=== PATIENT | female | born 1990 | race Caucasian/White ===

== ENCOUNTER 2018-01-11 09:30 | Emergency (ER) | payer SELFPAY ==
[2018-01-11] MEDS ORDERED: ONDANSETRON 4 MG/2 ML VIAL ONE (10:04)
[2018-01-11] MEDS ORDERED: NA CHLORIDE 0.9% 1,000 ML ONE (10:04)
[2018-01-11 11:02] LABS: Absolute Lymphocytes (CBC) 1.8 K/uL (0.7-4.9); Absolute Monocytes 0.5 K/uL (0.1-1.3); Absolute Neutrophil 9.8 K/uL (1.8-8.0); Basophils % 0.5 % (0-1.3); Eosinophils % 0.3 % (0-4.4); Hematocrit 37.9 % (36.0-45.0); Lymphocytes % 15.1 % (15.3-44.8); MCV 93.3 fL (80-100); MPV 10.5 fL (7.6-11.3); Monocytes % 3.9 % (3.3-12.3); RBC Red Blood Cell Count 4.06 M/uL (3.86-4.86)
[2018-01-11 11:05] LABS: Bicarbonate 26 mEq/L (21-31); Glucose Level 97 mg/dL (65-120); Potassium 3.4 mEq/L (3.6-5.0); Sodium Level 140 mEq/L (135-145)
[2018-01-11 11:06] LABS: BUN Blood Urea Nitrogen 11 mg/dL (6-20)
[2018-01-11] MEDS ORDERED: POTASSIUM CL SA 10 MEQ TAB PO ONE (11:29)
[2018-01-11] MEDS ORDERED: AMOX TR/K CLAV 400MG CHEW TAB PO ONE (11:29)
--- NOTE | 2018-01-11 11:29 | ER ---
Nurse's Notes [facility] Name: Loretta Trejo Age: 27 yrs Sex: Female : 1990 Arrival Date: 01/11/2018 Time: 09:33 Bed 23 Private MD: None, None Diagnosis: Streptococcal pharyngitis Presentation: 01/11 09:54 Presenting complaint: Patient states: "My throats been hurting since the , I've aj1 been taking Amoxicillin that I had left over from the last time I had strep throat, but this morning I woke up at 2:30 with my throat hurting, and then I started vomiting and I havn't been able to hold anything down. Then I threw up blood.". Transition of care: patient was not received from another setting of care. Onset of symptoms was January 05, 2018. Risk Assessment: Do you want to hurt yourself or someone else? Patient reports no desire to harm self or others. Initial Sepsis Screen: Does the patient meet any 2 criteria? No. Patient's initial sepsis screen is negative. Does the patient have a suspected source of infection? Yes: Other: throat reddened, pt did not finish previous course of antibiotics for strep throat. Care prior to arrival: None. 09:54 Method Of Arrival: Ambulatory aj1 09:54 Acuity: GHANSHYAM 3 aj1 Triage Assessment: 09:57 General: Appears in no apparent distress. uncomfortable, Behavior is calm, cooperative, aj1 appropriate for age. Pain: Complains of pain in left aspect of posterior pharynx and right aspect of posterior pharynx. GI: Reports vomiting. 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 - Social history:: Smoking status: Patient uses tobacco products, 4 cigarettes per day. - Ebola Screening: : No symptoms or risks identified at this time. Screenin:59 Abuse screen: Denies threats or abuse. Denies injuries from another. Nutritional aj1 screening: No deficits noted. Tuberculosis screening: No symptoms or risk factors identified. 12:45 Fall Risk None identified. aj1 Assessment: 09:59 General: Appears in no apparent distress. comfortable, Behavior is calm, cooperative, aj1 appropriate for age. Pain: Complains of pain in right aspect of posterior pharynx and left aspect of posterior pharynx Pain does not radiate. Pain currently is 8 out of 10 on a pain scale. Quality of pain is described as stabbing, Pain began one week ago. Neuro: Level of Consciousness is awake, alert, obeys commands, Oriented to person, place, time, situation, Speech is normal, Facial symmetry appears normal. Cardiovascular: Patient's skin is warm and dry. Respiratory: Airway is patent Respiratory effort is even, unlabored, Respiratory pattern is regular, symmetrical, Breath sounds are clear bilaterally. GI: Abdomen is flat, non-distended, Bowel sounds present X 4 quads. Abd is soft and non tender X 4 quads. Reports vomiting, Patient currently denies abdominal pain, diarrhea. : No signs and/or symptoms were reported regarding the genitourinary system. EENT: Throat is reddened. Derm: No signs and/or symptoms reported regarding the dermatologic system. Skin is pink, warm \\T\\ dry. normal. Musculoskeletal: No signs and/or symptoms reported regarding the musculoskeletal system. Circulation, motion, and sensation intact. 11:01 Reassessment: Patient appears in no apparent distress at this time. No changes from aj1 previously documented assessment. Patient and/or family updated on plan of care and expected duration. Pain level reassessed. Patient is alert, oriented x 3, equal unlabored respirations, skin warm/dry/pink. 11:40 Reassessment: Patient finishing IV fluids prior to discharge, patient instructed to aj1 notify staff when IV infusion is complete. 11:50 Reassessment: IV fluids are infusing slowly, patient instructed to keep arm straight so aj1 IV fluids can infuse Patient states feeling better. 12:00 Reassessment: Patient appears in no apparent distress at this time. No changes from aj1 previously documented assessment. Patient and/or family updated on plan of care and expected duration. Pain level reassessed. Patient is alert, oriented x 3, equal unlabored respirations, skin warm/dry/pink. Vital Signs: 09:57 BP 117 / 80; Pulse 61; Resp 16; Temp 97.1(TE); Pulse Ox 100% on R/A; Weight 61.23 kg aj1 (R); Height 5 ft. 4 in. (162.56 cm); Pain 8/10; 11:01 BP 105 / 86; Pulse 73; Resp 18; Pulse Ox 100% on R/A; aj1 12:45 BP 103 / 72; Pulse 67; Resp 18; Pulse Ox 100% ; aj1 09:57 Body Mass Index 23.17 (61.23 kg, 162.56 cm) aj1 ED Course: 09:33 Patient arrived in ED. mr 09:34 None, None is Private Physician. mr 09:44 Poppy Swanson, RN is Primary Nurse. aj1 09:45 Ileana Green FNP-C [facility] kb 09:46 Keith Rogel MD is Attending Physician. kb 09:56 Triage completed. aj1 09:57 Arm band placed on. aj1 09:59 Patient has correct armband on for positive identification. Bed in low position. Call aj1 light in reach. Side rails up X 1. 09:59 No provider procedures requiring assistance completed. aj1 12:45 IV discontinued, intact, bleeding controlled, No redness/swelling at site. Pressure aj1 dressing applied. Administered Medications: 10:45 Drug: NS 0.9% 1000 ml Route: IV; Rate: 1000 ml; Site: right antecubital; aj1 10:45 Drug: Zofran 4 mg Route: IVP; Site: right antecubital; aj1 12:45 Follow up: Response: No adverse reaction aj1 11:59 Drug: Potassium Chloride 20 mEq Route: PO; aj1 12:45 Follow up: Response: No adverse reaction aj1 11:59 Drug: Augmentin 875 mg Route: PO; aj1 12:45 Follow up: Response: No adverse reaction aj1 Outcome: 11:29 Discharge ordered by . kb 12:45 Discharged to home ambulatory. aj1 12:45 Condition: good 12:45 Discharge instructions given to patient, Instructed on discharge instructions, follow up and referral plans. medication usage, Demonstrated understanding of instructions, follow-up care, medications, Prescriptions given X 1. 12:48 Patient left the ED. iw Signatures: Ileana Green FNP-C FNP-CkPoppy Ring, RN RN aj1 Josefina Agrawal mr Maria Antonia Hernandez RN RN iw Corrections: (The following items were deleted from the chart) 12:54 12:53 BP 103 / 72; Pulse 67bpm; Resp 18bpm; Pulse Ox 100%; aj1 aj1 12:55 Discharged to home ambulatory, 1 aj1 12:55 [facility] Discharge instructions given to patient, Instructed on discharge instructions, aj1 follow up and referral plans. medication usage, Demonstrated understanding of instructions, follow-up care, medications, Prescriptions given X 1, aj1
--- NOTE | 2018-01-11 11:30 | EDPHYS ---
Physician Documentation [facility] Name: Loretta Trejo Age: 27 yrs Sex: Female : 1990 Arrival Date: 01/11/2018 Time: 09:33 Bed 23 Private MD: None, None ED Physician Keith Rogel HPI: 01/11 11:27 This 27 yrs old Female presents to ER via Ambulatory with complaints of kb Vomiting. 11:27 The patient presents to the emergency department with nausea, vomiting. Onset: The kb symptoms/episode began/occurred yesterday. Possible causes: unknown. The symptoms are aggravated by nothing. The symptoms are alleviated by nothing. Associated signs and symptoms: Pertinent positives: vomiting, sore throat. Severity of symptoms: At their worst the symptoms were mild moderate in the emergency department the symptoms are unchanged. The patient has not experienced similar symptoms in the past. The patient has not recently seen a physician. 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 - Social history:: Smoking status: Patient uses tobacco products, 4 cigarettes per day. - Ebola Screening: : No symptoms or risks identified at this time. ROS: 11:26 Constitutional: Negative for fever, chills, and weight loss, Cardiovascular: Negative kb for chest pain, palpitations, and edema, Respiratory: Negative for shortness of breath, cough, wheezing, and pleuritic chest pain, Back: Negative for injury and pain, : Negative for injury, bleeding, discharge, and swelling, MS/Extremity: Negative for injury and deformity, Skin: Negative for injury, rash, and discoloration, Neuro: Negative for headache, weakness, numbness, tingling, and seizure. 11:26 ENT: Positive for sore throat. 11:26 Abdomen/GI: Positive for nausea and vomiting, Negative for abdominal pain, diarrhea, constipation, abdominal cramps, abdominal distension. Exam: 11:27 Constitutional: This is a well developed, well nourished patient who is awake, alert, kb and in no acute distress. Head/Face: Normocephalic, atraumatic. Neck: Trachea midline, no thyromegaly or masses palpated, and no cervical lymphadenopathy. Supple, full range of motion without nuchal rigidity, or vertebral point tenderness. No Meningismus. Chest/axilla: Normal chest wall appearance and motion. Nontender with no deformity. No lesions are appreciated. Cardiovascular: Regular rate and rhythm with a normal S1 and S2. No gallops, murmurs, or rubs. Normal PMI, no JVD. No pulse deficits. Respiratory: Lungs have equal breath sounds bilaterally, clear to auscultation and percussion. No rales, rhonchi or wheezes noted. No increased work of breathing, no retractions or nasal flaring. Abdomen/GI: Soft, non-tender, with normal bowel sounds. No distension or tympany. No guarding or rebound. No evidence of tenderness throughout. Skin: Warm, dry with normal turgor. Normal color with no rashes, no lesions, and no evidence of cellulitis. MS/ Extremity: Pulses equal, no cyanosis. Neurovascular intact. Full, normal range of motion. Neuro: Awake and alert, GCS 15, oriented to person, place, time, and situation. Cranial nerves II-XII grossly intact. Motor strength 5/5 in all extremities. Sensory grossly intact. Cerebellar exam normal. Normal gait. 11:27 ENT: Posterior pharynx: Airway: normal, no evidence of obstruction, Tonsils: with erythema, Uvula: normal, midline, swelling, that is mild, erythema, that is marked, exudate, is not appreciated. Vital Signs: 09:57 BP 117 / 80; Pulse 61; Resp 16; Temp 97.1(TE); Pulse Ox 100% on R/A; Weight 61.23 kg aj1 (R); Height 5 ft. 4 in. (162.56 cm); Pain 8/10; 11:01 BP 105 / 86; Pulse 73; Resp 18; Pulse Ox 100% on R/A; aj1 12:45 BP 103 / 72; Pulse 67; Resp 18; Pulse Ox 100% ; aj1 09:57 Body Mass Index 23.17 (61.23 kg, 162.56 cm) [facility] MDM: 09:46 Patient medically screened. kb 11:27 Data reviewed: vital signs, nurses notes. Data interpreted: Pulse oximetry: on room air kb is 100 %. Interpretation: normal. Counseling: I had a detailed discussion with the patient and/or guardian regarding: the historical points, exam findings, and any diagnostic results supporting the discharge/admit diagnosis, lab results, the need for outpatient follow up, a family practitioner, to return to the emergency department if symptoms worsen or persist or if there are any questions or concerns that arise at home. 01/11 09:57 Order name: CBC with Diff; Complete Time: 11:04 kb 01/11 09:57 Order name: Basic Metabolic Panel; Complete Time: 11:07 kb 01/11 09:57 Order name: Nelson Screen Profile; Complete Time: 11:08 kb 01/11 09:57 Order name: Strep; Complete Time: 11:11 kb 01/11 09:57 Order name: IV Start; Complete Time: 11:01 kb Administered Medications: 10:45 Drug: NS 0.9% 1000 ml Route: IV; Rate: 1000 ml; Site: right antecubital; aj1 10:45 Drug: Zofran 4 mg Route: IVP; Site: right antecubital; aj1 12:45 Follow up: Response: No adverse reaction aj1 11:59 Drug: Potassium Chloride 20 mEq Route: PO; aj1 12:45 Follow up: Response: No adverse reaction aj1 11:59 Drug: Augmentin 875 mg Route: PO; aj1 12:45 Follow up: Response: No adverse reaction aj1 Disposition: 01/11/18 11:29 Discharged to Home. Impression: Streptococcal pharyngitis. - Condition is Stable. - Discharge Instructions: Strep Throat, [id number]. - Prescriptions for Augmentin 875- 125 mg Oral Tablet - take 1 tablet by ORAL route every 12 hours for 7 days; 14 tablet. - Medication Reconciliation Form, Thank You Letter, Antibiotic Education, Prescription Opioid Use form. - Follow up: Emergency Department; When: As needed; Reason: Worsening of condition. Follow up: Private Physician; When: 2 - 3 days; Reason: Recheck today's complaints, Continuance of care, Re-evaluation by your physician. Addendum: 01/15/2018 08:46 Co-signature as Attending Physician, Keith Rogel MD I agree with the assessment and c peoples plan of care. Signatures: Dispatcher [employer] EDIleana Thomas, TELECOMMUNICATIONS SUPPORT-C TELECOMMUNICATIONS SUPPORT-Poppy Stover, RN RN aj1 Keith Rogel MD MD cha Williams, Irene, RN RN iw Corrections: (The following items were deleted from the chart) 01/11 12:48 11:29 01/11/2018 11:29 Discharged to Home. Impression: Streptococcal pharyngitis. iw Condition is Stable. Forms are Medication Reconciliation Form, Thank You Letter, Antibiotic Education, Prescription Opioid Use. Follow up: Emergency Department; When: As needed; Reason: Worsening of condition. Follow up: Private Physician; When: 2 - 3 days; Reason: Recheck today's complaints, Continuance of care, Re-evaluation by your physician. kb
[2018-01-11 12:52] VITALS: TEMP 97.1; O2SAT 100
[2018-01-11 12:53] VITALS: BP 105/86
== END 2018-01-11 12:48 | disposition home or self-care (01) ==
LOC: ER 09:30
DX: J02.0 Streptococcal pharyngitis (principal); Z72.0 Tobacco use
CPT/HCPCS: 36415; 80048; 85025; 86308; 87081; 96374; 99283; J2405; J7030

== ENCOUNTER 2019-02-14 00:05 | Emergency (ER) | payer SELFPAY ==
[2019-02-14 00:57] LABS: Absolute Lymphocytes (CBC) 3.2 K/uL (0.7-4.9); Basophils % 0.4 % (0-1.3); Eosinophils % 2.3 % (0-4.4); Hematocrit 38.4 % (36.0-45.0); Lymphocytes % 34.7 % (15.3-44.8); MPV 9.6 fL (7.6-11.3); Monocytes % 5.2 % (3.3-12.3); RBC Red Blood Cell Count 4.15 M/uL (3.86-4.86)
[2019-02-14 01:00] LABS: Protime INR 0.97
[2019-02-14 01:04] LABS: Barbiturates NEGATIVE (NEGATIVE); Benzodiazepines POSITIVE (NEGATIVE); Cocaine NEGATIVE (NEGATIVE); METHAMPHETAM NEGATIVE (NEGATIVE); Methadone NEGATIVE (NEGATIVE); Opiates NEGATIVE (NEGATIVE); Phencyclidine NEGATIVE (NEGATIVE); THC Cannibis NEGATIVE (NEGATIVE)
[2019-02-14] MEDS ORDERED: MULTIVITAMINS 10 ML VIAL (INJ) IV ONE (01:28)
[2019-02-14] MEDS ORDERED: THIAMINE 200 MG/2 ML INJ ONE (01:28)
[2019-02-14] MEDS ORDERED: FOLIC ACID 5 MG/ML VIAL ONE (01:29)
[2019-02-14] MEDS ORDERED: NA CHLORIDE 0.9% 1,000 ML ONE (01:30)
[2019-02-14 01:33] LABS: ALT/SGPT 18 U/L (12-78); AST/SGOT 14 U/L (15-37); Alkaline Phosphatase 48 U/L (45-117); BUN Blood Urea Nitrogen 9 mg/dL (7-18); Bicarbonate 24 mmol/L (21-32); Bilirubin Direct 0.1 mg/dL (0-0.2); Bilirubin Total 0.3 mg/dL (0.2-1.0); Glucose Level 87 mg/dL (74-106); Potassium 3.2 mmol/L (3.5-5.1); Protein, Total 7.3 g/dL (6.4-8.2); Sodium Level 140 mmol/L (136-145)
[2019-02-14 01:49] LABS: Urine Blood 1+ (NEG); Urine Glucose NEGATIVE (NEG); Urine Protein NEGATIVE (NEG); Urine Specific Gravity <1.005 (1.005-1.030)
--- NOTE | 2019-02-14 02:14 | ER ---
Nurse's Notes [facility] Name: Loretta Trejo Age: 28 yrs Sex: Female : 1990 Arrival Date: 02/14/2019 Time: 00:15 Bed 18 Private MD: Diagnosis: Epilepsy and recurrent seizures;Alcohol abuse Presentation: 02/14 00:23 Presenting complaint: EMS states: Pt has new onset seizures, first one was 2 weeks ago. tl2 Pt had another seizure tonight, EMS gave 5 mg Versed IM, seizure stopped, pt returned to baseline. Pt had second seizure en route, additional 5 mg Versed given IV. Pt is post ictal on arrival but is oriented to person and follows commands. Positive ETOH tonight. Transition of care: patient was not received from another setting of care. Onset of symptoms was February 13, 2019 at 22:00. Risk Assessment: Do you want to hurt yourself or someone else? Patient reports no desire to harm self or others. Initial Sepsis Screen: Does the patient meet any 2 criteria? No. Patient's initial sepsis screen is negative. Does the patient have a suspected source of infection? No. Patient's initial sepsis screen is negative. Care prior to arrival: Medication(s) given: two rounds of 5 mg Versed IV initiated. 20 GA, in the right antecubital area, Glucose check: 88. 00:23 Method Of Arrival: EMS: [facility] tl2 00:23 Acuity: GHANSHYAM 2 tl2 Triage Assessment: 00:27 General: Appears in no apparent distress. Behavior is cooperative, drowsy. Pain: Denies tl2 pain. Neuro: Level of Consciousness is awake, obeys commands, confused, Oriented to person, place. Historical: - Allergies: 00:27 Amoxicillin; tl2 - Home Meds: 00:27 None [Active]; tl2 - PMHx: 00:27 Migraines; Seizures; tl2 - Immunization history:: Adult Immunizations up to date. - Social history:: Smoking status: Patient/guardian denies using tobacco, Patient uses alcohol. - Ebola Screening: : No symptoms or risks identified at this time. Screenin:28 Abuse screen: Denies threats or abuse. Nutritional screening: No deficits noted. tl2 Tuberculosis screening: No symptoms or risk factors identified. Fall Risk IV access (20 points). Gait- Impaired (20 pts.). Assessment: 00:30 General: Appears in no apparent distress. uncomfortable, Behavior is calm, cooperative. jb4 Pain: Complains of pain in back, right knee and medial aspect of left thigh and headache Pain does not radiate. Pain currently is 5 out of 10 on a pain scale. Neuro: Level of Consciousness is awake, obtunded, Oriented to person, place. Cardiovascular: Patient's skin is warm and dry. Respiratory: Airway is patent Respiratory effort is even, unlabored, Breath sounds are clear bilaterally. GI: No signs and/or symptoms were reported involving the gastrointestinal system. : No signs and/or symptoms were reported regarding the genitourinary system. EENT: No signs and/or symptoms were reported regarding the EENT system. Derm: Skin is intact, Skin is pink, warm \T\ dry. Musculoskeletal: Circulation, motion, and sensation intact. Range of motion: intact in all extremities. 00:47 Reassessment: Pt's reports patient is seizing, provider notified of pt seizing, jb4 provider to bedside, given verbal instruction to use ammonia capsule, pt awakened after use of ammonia capsule immediately. Mental state is the same as previous assessment. 02:00 Reassessment: Patient appears in no apparent distress at this time. No changes from jb4 previously documented assessment. Patient and/or family updated on plan of care and expected duration. Pain level reassessed. Respirations are even and unlabored, pt's is at the bedside. 02:30 Reassessment: Patient appears in no apparent distress at this time. Patient and/or 4 family updated on plan of care and expected duration. Pain level reassessed. Patient is alert, oriented x 3, equal unlabored respirations, skin warm/dry/pink. Pt is now fully awake, alert, and oriented. Pt refused the rest of her IV fluids. ambulated out of ED with steady gait, denied questions or concerns, verbalized understanding of d/c and follow up instructions. Vital Signs: 00:27 BP 104 / 72; Pulse 86; Resp 18; Temp 97.9(O); Pulse Ox 99% on R/A; Weight 79.38 kg; tl2 Height 5 ft. 4 in. (162.56 cm); Pain 0/10; 01:49 BP 105 / 68; Pulse 80; Resp 20; Temp 98(O); Pulse Ox 97% on R/A; ag4 01:50 BP 100 / 63; Pulse 74; Resp 16; Temp 98.4; Pulse Ox 95% on R/A; ag4 02:15 BP 107 / 63; Pulse 81; Resp 16; Pulse Ox 99% on R/A; jb4 00:27 Body Mass Index 30.04 (79.38 kg, 162.56 cm) tl2 May Coma Score: 00:27 Eye Response: spontaneous(4). Verbal Response: confused(4). Motor Response: obeys tl2 commands(6). Total: 14. ED Course: 00:15 Patient arrived in ED. ds1 00:17 Bruno Holley NP is PHCP. pm1 00:17 Keith Rogel MD is Attending Physician. pm1 00:20 Initial lab(s) drawn, by me, sent to lab. Maintain EMS IV. Dressing intact. Good blood lp1 return noted. Site clean \T\ dry. Gauge \T\ site: 20g to R AC. 00:26 Triage completed. tl2 00:27 Arm band placed on right wrist. tl2 00:28 Straight cath inserted, using sterile technique, 16 Fr. Returned clear yellow urine. tl2 Patient tolerated well. 00:28 Patient has correct armband on for positive identification. Placed in gown. Bed in low tl2 position. Call light in reach. Side rails up X2. Adult w/ patient. Seizure precautions initiated. 00:47 Surjit Unger, RN is Primary Nurse. jb4 01:21 CT completed. Patient tolerated procedure well. Patient moved to CT via stretcher. Patient moved back from CT. 01:32 CT Head Brain wo Cont In Process Unspecified. EDMS 02:30 No provider procedures requiring assistance completed. IV discontinued, intact, jb4 bleeding controlled, No redness/swelling at site. Pressure dressing applied. Administered Medications: 01:27 Drug: Banana Bag - (NS 0.9% 1000 ml, foLIC Acid 1 mg, Thiamine 100 mg, Multivitamin 1 jb4 amp) Route: IV; Rate: calculated rate; Site: right antecubital; 02:30 Follow up: Response: No adverse reaction; IV Status: Infusion discontinued per pt's jb4 request.; IV Intake: 250ml Intake: 02:30 IV: 250ml; Total: 250ml. jb4 Outcome: 02:13 Discharge ordered by . pm1 02:30 Discharged to home ambulatory, with significant other. jb4 02:30 Condition: stable 02:30 Discharge instructions given to patient, significant other, Instructed on discharge instructions, follow up and referral plans. Demonstrated understanding of instructions, follow-up care. 02:45 Patient left the ED. jb4 Signatures: Dispatcher [employer] Tom Garcia Demi ds1 Kat Miller, RN RN lp1 Bruno Holley, WIRELESS WATCHER WIRELESS WATCHER pm1 Gladys Rose RN RN tl2 Surjit Unger RN RN jb4 Sean Castillo ag4
--- NOTE | 2019-02-14 02:14 | EDPHYS ---
Physician Documentation [facility] Name: Loretta Trejo Age: 28 yrs Sex: Female : 1990 Arrival Date: 02/14/2019 Time: 00:15 Bed 18 Private MD: ANN Physician Keith Rogel HPI: 02/14 00:37 This 28 yrs old Female presents to ER via EMS with complaints of Seizure. pm1 00:37 The patient presents after having a possible seizure episode, generalized shaking and pm1 movement, the episode(s) was witnessed, by family, . Character of seizure(s): Loss of consciousness: the patient did not lose consciousness, Motor activity: generalized, Incontinence: none, Apnea: the patient did not experience apnea, Circulation: the patient did not experience evidence of pulse disturbance, Eye movements: are unknown. Seizure onset: just prior to arrival. Context: the seizure(s) was witnessed, by family, , occurred at home, occurred while the patient was at rest, in bed. Contributing factors: unknown. Seizure Hx: similar episode 2 weeks ago. Associated injury: The patient did not suffer any apparent associated injury. EMS care: Versed 5 mg IM initially that returned the patient to baseline immediately after injection and then given Versed 5 mg IV in route with return of symptoms. Current symptoms: Currently, the patient is not experiencing any symptoms. The patient has not recently seen a physician. Patient was aware of all activities and events surrounding seizure today. Patient and reports that the patient was having seizure activity until EMS squirted something into her nostrils and she immediately came out ot the seizure and was talking. Historical: - Allergies: 00:27 Amoxicillin; tl2 - Home Meds: 00:27 None [Active]; tl2 - PMHx: 00:27 Migraines; Seizures; tl2 - Immunization history:: Adult Immunizations up to date. - Social history:: Smoking status: Patient/guardian denies using tobacco, Patient uses alcohol. - Ebola Screening: : No symptoms or risks identified at this time. ROS: 00:37 Constitutional: Negative for fever, chills, and weight loss, Eyes: Negative for injury, pm1 pain, redness, and discharge, ENT: Negative for injury, pain, and discharge, Neck: Negative for injury, pain, and swelling, Cardiovascular: Negative for chest pain, palpitations, and edema, Respiratory: Negative for shortness of breath, cough, wheezing, and pleuritic chest pain, Abdomen/GI: Negative for abdominal pain, nausea, vomiting, diarrhea, and constipation, Back: Negative for injury and pain, : Negative for injury, bleeding, discharge, and swelling, MS/Extremity: Negative for injury and deformity, Skin: Negative for injury, rash, and discoloration. 00:37 Neuro: Positive for seizure activity, Negative for dizziness, headache, numbness, tingling. Exam: 00:37 Head/Face: Normocephalic, atraumatic. Eyes: Pupils equal round and reactive to light, pm1 extra-ocular motions intact. Lids and lashes normal. Conjunctiva and sclera are non-icteric and not injected. Cornea within normal limits. Periorbital areas with no swelling, redness, or edema. ENT: Nares patent. No nasal discharge, no septal abnormalities noted. Tympanic membranes are normal and external auditory canals are clear. Oropharynx with no redness, swelling, or masses, exudates, or evidence of obstruction, uvula midline. Mucous membranes moist. Neck: Trachea midline, no thyromegaly or masses palpated, and no cervical lymphadenopathy. Supple, full range of motion without nuchal rigidity, or vertebral point tenderness. No Meningismus. Chest/axilla: Normal chest wall appearance and motion. Nontender with no deformity. No lesions are appreciated. Cardiovascular: Regular rate and rhythm with a normal S1 and S2. No gallops, murmurs, or rubs. Normal PMI, no JVD. No pulse deficits. Respiratory: Lungs have equal breath sounds bilaterally, clear to auscultation and percussion. No rales, rhonchi or wheezes noted. No increased work of breathing, no retractions or nasal flaring. Abdomen/GI: Soft, non-tender, with normal bowel sounds. No distension or tympany. No guarding or rebound. No evidence of tenderness throughout. Back: No spinal tenderness. No costovertebral tenderness. Full range of motion. Skin: Warm, dry with normal turgor. Normal color with no rashes, no lesions, and no evidence of cellulitis. MS/ Extremity: Pulses equal, no cyanosis. Neurovascular intact. Full, normal range of motion. Neuro: Awake and alert, GCS 15, oriented to person, place, time, and situation. Cranial nerves II-XII grossly intact. Motor strength 5/5 in all extremities. Sensory grossly intact. Cerebellar exam normal. Normal gait. 00:37 Constitutional: The patient appears in no acute distress, alert, awake, comfortable, non-diaphoretic, non-toxic, well developed, well hydrated, well groomed, well nourished. 00:37 Neuro: seizure activity, is not displayed by the patient. Vital Signs: 00:27 BP 104 / 72; Pulse 86; Resp 18; Temp 97.9(O); Pulse Ox 99% on R/A; Weight 79.38 kg; tl2 Height 5 ft. 4 in. (162.56 cm); Pain 0/10; 01:49 BP 105 / 68; Pulse 80; Resp 20; Temp 98(O); Pulse Ox 97% on R/A; ag4 01:50 BP 100 / 63; Pulse 74; Resp 16; Temp 98.4; Pulse Ox 95% on R/A; ag4 02:15 BP 107 / 63; Pulse 81; Resp 16; Pulse Ox 99% on R/A; jb4 00:27 Body Mass Index 30.04 (79.38 kg, 162.56 cm) tl2 [place] Coma Score: 00:27 Eye Response: spontaneous(4). Verbal Response: confused(4). Motor Response: obeys tl2 commands(6). Total: 14. MDM: 00:21 Patient medically screened. [facility] 01:03 Data reviewed: vital signs. Data interpreted: Pulse oximetry: on room air is 99 %. pm1 Interpretation: normal. 01:03 ED course: Patient with reported seizure activity per . Patient evaluated and pm1 her movements appeared to be consciously controlled. Ammonia capsule placed under patient's nose and she returned to normal baseline immediately. 01:44 Differential diagnosis: drug overdose, seizure, alcohol withdraw, alcohol abuse, pm1 psychogenic seizures. 02:13 Counseling: I had a detailed discussion with the patient and/or guardian regarding: the pm1 historical points, exam findings, and any diagnostic results supporting the discharge/admit diagnosis, lab results, radiology results, the need for outpatient follow up, a neurologist, to return to the emergency department if symptoms worsen or persist or if there are any questions or concerns that arise at home. 02:13 ED course: Patient with pseudo/psychogenic seizure activity that immediately resolved pm1 with nauseous stimuli. Patient without any observable postictal episodes. Will discharge patient home for follow up with PCP/neurology. 02/14 00:27 Order name: Acetaminophen pm02/14 00:27 Order name: Basic Metabolic Panel pm1 02/14 00:27 Order name: CBC with Diff pm1 02/14 00:27 Order name: ETOH Level; Complete Time: 01:35 pm1 02/14 00:27 Order name: Hepatic Function; Complete Time: :35 pm02/14 00:27 Order name: PT-INR; Complete Time: 01:08 pm02/14 00:27 Order name: Ptt, Activated; Complete Time: 01:08 pm02/14 00:27 Order name: Salicylate; Complete Time: :35 pm02/14 00:27 Order name: Urine Drug Screen; Complete Time: 01:08 pm02/14 00:28 Order name: Acetaminophen Level; Complete Time: 01:35 EDMS 02/14 00:28 Order name: Basic Metabolic Panel; Complete Time: 01:35 EDMS 02/14 00:28 Order name: CBC with Automated Diff; Complete Time: 01:08 EDMS 02/14 00:34 Order name: Test, Serum; Complete Time: 01:21 fc 02/14 00:35 Order name: Urine Dipstick--Ancillary (enter results); Complete Time: 01:50 mw2 02/14 00:27 Order name: Urine Test (obtain specimen); Complete Time: 00:48 pm02/14 00:27 Order name: EKG; Complete Time: 00:29 pm02/14 00:27 Order name: EKG - Nurse/Tech; Complete Time: 00:48 pm02/14 00:27 Order name: IV Saline Lock; Complete Time: 00:48 pm02/14 00:27 Order name: Labs collected and sent; Complete Time: 00:48 pm02/14 00:27 Order name: Urine Dipstick-Ancillary (obtain specimen); Complete Time: 00:48 pm02/14 00:27 Order name: CT Head Brain wo Cont 02/14 00:30 Order name: Straight Cath - Urine; Complete Time: 00:30 tl2 EC:58 Rate is 94 beats/min. Rhythm is regular, Normal Sinus Rhythm with No ectopy. No Q pm1 waves. T waves are Normal. No ST changes noted. Clinical impression: Normal ECG. Administered Medications: 01:27 Drug: Banana Bag - (NS 0.9% 1000 ml, foLIC Acid 1 mg, Thiamine 100 mg, Multivitamin 1 jb4 amp) Route: IV; Rate: calculated rate; Site: right antecubital; 02:30 Follow up: Response: No adverse reaction; IV Status: Infusion discontinued per pt's jb4 request.; IV Intake: 250ml Disposition: 09:35 Co-signature as Attending Physician, Keith Rogel MD I agree with the assessment and rusty plan of care. Disposition: 02/14/19 02:13 Discharged to Home. Impression: Alcohol abuse, Epilepsy and recurrent seizures. - Condition is Stable. - Discharge Instructions: Finding Treatment for Addiction, Alcohol Abuse and Nutrition, Seizure, Adult, [id number]. - Medication Reconciliation Form, Thank You Letter, Antibiotic Education, Prescription Opioid Use, Work release form, Family Work Release form. - Follow up: Emergency Department; When: As needed; Reason: Worsening of condition. Follow up: Private Physician; When: 2 - 3 days; Reason: Recheck today's complaints, Continuance of care, Re-evaluation by your physician. - Problem is new. - Symptoms have improved. Signatures: Dispatcher [employer] Keith Aceves MD MD cha Marinas, Patrick, INLAYER INLAYER pm1 Gladys Rose RN RN tl2 Surjit Unger RN RN jb4 Corrections: (The following items were deleted from the chart) 02:45 02:13 02/14/2019 02:13 Discharged to Home. Impression: Alcohol abuseEpilepsy and jb4 recurrent seizures. Condition is Stable. Discharge Instructions: Finding Treatment for Addiction, Alcohol Abuse and Nutrition, Seizure, Adult, [id number]. Forms are Medication Reconciliation Form, Thank You Letter, Antibiotic Education, Prescription Opioid Use. Follow up: Emergency Department; When: As needed; Reason: Worsening of condition. Follow up: Private Physician; When: 2 - 3 days; Reason: Recheck today's complaints, Continuance of care, Re-evaluation by your physician. Problem is new. Symptoms have improved. pm1
[2019-02-14 03:07] VITALS: TEMP 98.4
[2019-02-14 03:08] VITALS: BP 107/63; O2SAT 99
--- NOTE | 2019-02-14 08:25 | EKG ---
Test Date: 2019-02-14 Test Time: 00:54:53 Plastic Fabricator: CECIT MEASUREMENT RESULTS: Intervals: Rate: 94 LA: 152 QRSD: 86 QT: 382 QTc: 477 [place]: P: 42 LA: 152 QRS: 23 T: 17 INTERPRETIVE STATEMENTS: Normal sinus rhythm Cannot rule out Anterior infarct, age undetermined Abnormal ECG No previous ECG available for comparison Electronically Signed On 02-14-19 08:24:46 CDT by Satya Daley
--- NOTE | 2019-02-14 11:07 | RAD REPORT ---
EXAM DESCRIPTION: CT - Head Brain Wo Cont - 02/14/2019 3:22 am CLINICAL HISTORY: SEIZURE COMPARISON: None available TECHNIQUE: Axial CT of the head obtained from the skull apex to the skull base without contrast. FINDINGS: No acute intracranial hemorrhage identified. No mass, mass effect, shift of the midline, a bnormal extra-axial fluid collection or CT evidence of acute ischemic change identified. The ventricu lar system is unremarkable. No acute abnormalities of the supratentorial white matter, basal gangli a, cerebellum, or brainstem. The visualized paranasal sinuses and the mastoids are clear. No skull fracture identified. Visualized orbits and globes are unremarkable. DLP: 52.4 mGy-cm IMPRESSION: 1. No acute intracranial abnormality identified. This exam was performed according to our departmental dose-optimization program, which includes autom ated exposure control, adjustment of the mA and/or kV according to patient size and/or use of iterati ve reconstruction technique. Electronically signed by: Bethel Henry 02/14/2019 1:38 AM CDT Due to temporary technical issues with the PACS/Fluency reporting system, reports are being signed by the in house radiologist as a courtesy to ensure prompt reporting. The interpreting radiologist is f ully responsible for the content of the report.
== END 2019-02-14 02:45 | disposition home or self-care (01) ==
LOC: ER 00:05
DX: F10.10 Alcohol abuse, uncomplicated (principal); Z88.1 Allergy status to other antibiotic agents
CPT/HCPCS: 36415; 51702; 70450; 80048; 80076; 80307; 80320; 80329; 81003; 84703; 85025; 85610; 85730; 93005; 96365; 99284; J3411; J7030

== ENCOUNTER 2019-09-24 21:19 | Emergency (ER) | payer OTHER, SELFPAY ==
--- OUTSIDE RECORDS SUMMARY | 2019-09-24 21:21 | XMS REPORT ---
:1990 [facility] Address [address] [place] [address] Dr. Shipley [address] [place] [id number] Care Team Providers Name Role Phone Unavailable Unavailable Unavailable Problems This patient has no known problems. Allergies, Adverse Reactions, Alerts This patient has no known allergies or adverse reactions. Medications This patient has no known medications.
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
[2019-09-24] MEDS ORDERED: LORazepam 2 MG/ML VIAL ONE (21:40)
[2019-09-24 22:14] LABS: Barbiturates NEGATIVE (NEGATIVE); Benzodiazepines NEGATIVE (NEGATIVE); Cocaine NEGATIVE (NEGATIVE); METHAMPHETAM NEGATIVE (NEGATIVE); Methadone NEGATIVE (NEGATIVE); Opiates NEGATIVE (NEGATIVE); Phencyclidine NEGATIVE (NEGATIVE); THC Cannibis NEGATIVE (NEGATIVE)
[2019-09-24 22:43] LABS: Absolute Lymphocytes (CBC) 1.4 K/uL (0.7-4.9); Basophils % 0.7 % (0-1.3); Hematocrit 36.8 % (36.0-45.0); Lymphocytes % 29.4 % (15.3-44.8); MPV 9.4 fL (7.6-11.3); RBC Red Blood Cell Count 3.91 M/uL (3.86-4.86)
[2019-09-24 22:44] LABS: ALT/SGPT 13 U/L (12-78); AST/SGOT 12 U/L (15-37); Albumin 3.5 g/dL (3.4-5.0); Alkaline Phosphatase 46 U/L (45-117); BUN Blood Urea Nitrogen 6 mg/dL (7-18); Bicarbonate 22 mmol/L (21-32); Bilirubin Direct < 0.1 mg/dL (0-0.2); Bilirubin Total 0.2 mg/dL (0.2-1.0); CKMB Creatine Kinase MB < 1.0 ng/mL (0.3-3.6); Creatine Phosphokinase 48 U/L (26-192); Glucose Level 88 mg/dL (74-106); Lipase 96 U/L (73-393); Magnesium 2.1 mg/dL (1.8-2.4); Potassium 3.3 mmol/L (3.5-5.1); Protein, Total 6.5 g/dL (6.4-8.2); Sodium Level 136 mmol/L (136-145); Troponin (Emerg Dept Use Only) < 0.02 ng/mL (0.0-0.045)
[2019-09-24 22:47] LABS: Protime INR 1.07
[2019-09-24 23:15] LABS: Blood Morphology Comment NOT SEEN (NOT SEEN); Platelet Estimate ADEQ
--- NOTE | 2019-09-25 00:28 | ER ---
Nurse's Notes [facility] Name: Loretta Trejo Age: 29 yrs Sex: Female : 1990 Arrival Date: 09/24/2019 Time: 21:19 Bed 15 Private MD: Diagnosis: Epilepsy and recurrent seizures;Syncope and collapse;Hypokalemia Presentation: 09/24 21:33 Presenting complaint: states: Our daughter had been diagnosed with FLU and ca1 Strep. We were thinking she has the same thing. She wasn't feeling well for about 3-4 days. Today, when I got home from work at 4pm, she can't hold anything down. She also has history of seizures, she takes meds for it but I cannot recall what it's called. Transition of care: patient was not received from another setting of care. Onset of symptoms was September 24, 2019. Risk Assessment: Do you want to hurt yourself or someone else? Patient reports no desire to harm self or others. Initial Sepsis Screen: Does the patient meet any 2 criteria? No. Patient's initial sepsis screen is negative. Does the patient have a suspected source of infection? No. Patient's initial sepsis screen is negative. Care prior to arrival: None. 21:33 Method Of Arrival: Wheelchair ca1 21:33 Acuity: GHANSHYAM 3 ca1 Triage Assessment: 22:00 Respiratory: Reports shortness of breath at rest since 09/24/19 Onset: The jv1 symptoms/episode began/occurred today, the patient has mild shortness of breath. GI: No signs and/or symptoms were reported involving the gastrointestinal system. Abdomen is round non-distended, Bowel sounds present X 4 quads. Abd is soft and non tender Abd is non tender X 4 quads Reports nausea, Patient currently denies abdominal pain, vomiting. : No signs and/or symptoms were reported regarding the genitourinary system. Derm: Skin is intact, is healthy with good turgor. Musculoskeletal: Circulation, motion, and sensation intact. Capillary refill < 3 seconds. 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 - Coronavirus screen:: The patient has NOT traveled to [place], [place], or [place] in the past 14 days. The patient has NOT had contact with known/suspected case of Coronavirus?. - Social history:: Smoking status: Patient reports the use of cigarette tobacco products, smokes one-half pack cigarettes per day. - Ebola Screening: : Patient negative for fever greater than or equal to 101.5 degrees Fahrenheit, and additional compatible Ebola Virus Disease symptoms Patient denies exposure to infectious person Patient denies travel to an Ebola-affected area in the 21 days before illness onset No symptoms or risks identified at this time. Screenin/06 01:43 Abuse screen: Denies threats or abuse. Nutritional screening: No deficits noted. jv1 Tuberculosis screening: No symptoms or risk factors identified. Fall Risk None identified. Assessment: 09/24 21:40 General: Appears distressed, uncomfortable, well developed, Behavior is anxious, jv1 drowsy, Reports feeling ill for 12-24 hours, fatigue for 12-24 hours. Pain: Denies pain. Neuro: Level of Consciousness is awake, obeys commands, Oriented to person, place, time, situation. Cardiovascular: Denies chest pain, Rhythm is regular. Respiratory: Airway is patent Respiratory effort is even, unlabored, Breath sounds are clear bilaterally. GI: No signs and/or symptoms were reported involving the gastrointestinal system. : No signs and/or symptoms were reported regarding the genitourinary system. EENT: No signs and/or symptoms were reported regarding the EENT system. 21:40 Derm: Skin is intact, is healthy with good turgor. Musculoskeletal: Circulation, jv1 motion, and sensation intact. Capillary refill < 3 seconds. 21:55 Reassessment: pt presented with uncoordinated movements, claims it was seizure jv1 but he stated it was different from what she had before. It lasted for 4minutes. right after that, the patient was able to speak right away and was answering questions though her eyes were still closed. provider came to see patient. seizure precautions in place. 22:05 Reassessment: Patient and/or family updated on plan of care and expected duration. Pain jv1 level reassessed. Patient is alert, oriented x 3, equal unlabored respirations, skin warm/dry/pink. Patient states symptoms have improved. no episodes of seizure. 23:40 Reassessment: pt resting well, no episodes of seizure. General: Appears in no apparent jv1 distress. comfortable, Behavior is calm, cooperative. Pain: Denies pain. Neuro: Level of Consciousness is awake, alert, obeys commands, Oriented to person, place, time, situation. 09/25 00:40 Reassessment: Patient appears in no apparent distress at this time. Patient and/or jv1 family updated on plan of care and expected duration. Pain level reassessed. Patient is alert, oriented x 3, equal unlabored respirations, skin warm/dry/pink. Patient denies pain at this time. Patient states feeling better. Patient states symptoms have improved. Vital Signs: 09/24 21:37 Pulse 87; Resp 24; Temp 98(TE); Pulse Ox 100% on R/A; Weight 63.5 kg (R); Height 5 ft. ca1 2 in. (157.48 cm) (R); 21:37 BP 125 / 75; Pulse 88; Resp 18; Temp 99.2; Pulse Ox 99% ; Pain 0/10; jv1 22:30 BP 123 / 70; Pulse 88; Resp 18; Temp 99; Pulse Ox 98% ; Pain 0/10; jv1 23:07 BP 128 / 70; mg2 02 00:30 BP 126 / 78; Pulse 89; Resp 18; Temp 99.0; Pulse Ox 99% ; Pain 0/10; jv1 01:00 BP 125 / 78; Pulse 88; Resp 18; Temp 99.0; Pulse Ox 99% ; Pain 0/10; jv1 09/24 21:37 Body Mass Index 25.61 (63.50 kg, 157.48 cm) ca1 ED Course: 09/24 21:19 Patient arrived in ED. cl3 21:35 Hardeep Martinez MD is Attending Physician. tw4 21:36 Triage completed. ca1 21:37 Arm band placed on right wrist. ca1 21:37 Patient has correct armband on for positive identification. Placed in gown. Bed in low ca1 position. Call light in reach. Side rails up X2. Adult w/ patient. Seizure precautions initiated. pvc monitor on. Pulse ox on. NIBP on. Warm blanket given. 22:15 CT Head Brain wo Cont In Process Unspecified. EDMS 22:15 CT Chest For PE Angio In Process Unspecified. EDMS 02/06 01:00 No provider procedures requiring assistance completed. IV discontinued, intact, jv1 bleeding controlled, No redness/swelling at site. Pressure dressing applied. Administered Medications: 01:00 Drug: Potassium Effervescent Tablet 50 mEq Route: PO; jv1 01:49 Follow up: Response: No adverse reaction jv1 01:00 Drug: Keppra 750 mg Route: PO; jv1 01:49 Follow up: Response: No adverse reaction jv1 Outcome: 00:23 Discharge ordered by . tw4 01:46 Discharged to home ambulatory, with significant other. jv1 01:46 Condition: stable 01:46 Discharge instructions given to patient, significant other, Instructed on discharge instructions, follow up and referral plans. medication usage, Demonstrated understanding of instructions, follow-up care, medications, Prescriptions given X 1. 01:52 Patient left the ED. jv1 Signatures: Dispatcher [employer] [facility] Hardeep Martinez MD MD tw4 Renaldo Aburto RN RN mg2 Eri Meza RN RN jv1 Miracle Ybarra RN RN ca1 Shaun Lawson cl3 Corrections: (The following items were deleted from the chart) 01:39 02 22:40 Reassessment: Patient appears in no apparent distress at this time. No jv1 changes from previously documented assessment. Patient and/or family updated on plan of care and expected duration. Pain level reassessed. Patient is alert, oriented x 3, equal unlabored respirations, skin warm/dry/pink. Patient denies pain at this time. Patient states feeling better. Patient states symptoms have improved. pt resting well. jv1 02 01:50 02 21:55 Reassessment: pt presented with uncoordinated movements, claims it jv1 was seizure but he stated it was different from what she had before. It lasted for 4minutes. right after that, the patient was able to speak right away and was answering questions though her eyes were still closed. provider came to see patient. jv1
--- NOTE | 2019-09-25 00:29 | EDPHYS ---
Physician Documentation [facility] Name: Loretta Trejo Age: 29 yrs Sex: Female : 1990 Arrival Date: 09/24/2019 Time: 21:19 Bed 15 Private MD: ED Physician Hardeep Martinez HPI: 09/25 01:37 This 29 yrs old Female presents to ER via Wheelchair with complaints of tw4 Shortness Of Breath, Fainting. 01:37 The patient presents after having a single isolated seizure. Character of seizure(s): tw4 Loss of consciousness: it is not known if the patient experienced loss of consciousness, Motor activity: generalized, Incontinence: none, Apnea:. Seizure onset: today. Context: the seizure(s) was witnessed, by family, . Seizure Hx: the patient has no previous seizure history. Associated injury: The patient did not suffer any apparent associated injury. The patient has not experienced similar symptoms in the past. 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 - Coronavirus screen:: The patient has NOT traveled to [place], [place], or [place] in the past 14 days. The patient has NOT had contact with known/suspected case of Coronavirus?. - Social history:: Smoking status: Patient reports the use of cigarette tobacco products, smokes one-half pack cigarettes per day. - Ebola Screening: : Patient negative for fever greater than or equal to 101.5 degrees Fahrenheit, and additional compatible Ebola Virus Disease symptoms Patient denies exposure to infectious person Patient denies travel to an Ebola-affected area in the 21 days before illness onset No symptoms or risks identified at this time. ROS: 09/25 01:37 Constitutional: Negative for fever, chills, and weight loss, Eyes: Negative for injury, tw4 pain, redness, and discharge, Cardiovascular: Negative for chest pain, palpitations, and edema, Abdomen/GI: Negative for abdominal pain, nausea, vomiting, diarrhea, and constipation, Back: Negative for injury and pain, MS/Extremity: Negative for injury and deformity, Skin: Negative for injury, rash, and discoloration. Respiratory: Positive for shortness of breath, Negative for cough, dyspnea on exertion, hemoptysis, orthopnea, pleurisy. Exam: 01:37 Constitutional: This is a well developed, well nourished patient who is awake, alert, tw4 and in no acute distress. Head/Face: Normocephalic, atraumatic. Chest/axilla: Normal chest wall appearance and motion. Nontender with no deformity. No lesions are appreciated. Cardiovascular: Regular rate and rhythm with a normal S1 and S2. No gallops, murmurs, or rubs. Normal PMI, no JVD. No pulse deficits. Respiratory: Lungs have equal breath sounds bilaterally, clear to auscultation and percussion. No rales, rhonchi or wheezes noted. No increased work of breathing, no retractions or nasal flaring. Abdomen/GI: Soft, non-tender, with normal bowel sounds. No distension or tympany. No guarding or rebound. No evidence of tenderness throughout. Back: No spinal tenderness. No costovertebral tenderness. Full range of motion. MS/ Extremity: Pulses equal, no cyanosis. Neurovascular intact. Full, normal range of motion. Neuro: Awake and alert, GCS 15, oriented to person, place, time, and situation. Cranial nerves II-XII grossly intact. Motor strength 5/5 in all extremities. Sensory grossly intact. Cerebellar exam normal. Normal gait. Vital Signs: 0205 21:37 Pulse 87; Resp 24; Temp 98(TE); Pulse Ox 100% on R/A; Weight 63.5 kg (R); Height 5 ft. ca1 2 in. (157.48 cm) (R); 21:37 BP 125 / 75; Pulse 88; Resp 18; Temp 99.2; Pulse Ox 99% ; Pain 0/10; jv1 22:30 BP 123 / 70; Pulse 88; Resp 18; Temp 99; Pulse Ox 98% ; Pain 0/10; jv1 23:07 BP 128 / 70; mg2 02/06 00:30 BP 126 / 78; Pulse 89; Resp 18; Temp 99.0; Pulse Ox 99% ; Pain 0/10; jv1 01:00 BP 125 / 78; Pulse 88; Resp 18; Temp 99.0; Pulse Ox 99% ; Pain 0/10; jv1 09/24 21:37 Body Mass Index 25.61 (63.50 kg, 157.48 cm) ca1 MDM: 09/24 21:35 Patient medically screened. 09/25 01:37 Differential diagnosis: cerebral vascular accident, drug overdose. Data reviewed: vital tw4 signs, nurses notes. Data interpreted: Pulse oximetry: Interpretation:. Counseling: I had a detailed discussion with the patient and/or guardian regarding: the historical points, exam findings, and any diagnostic results supporting the discharge/admit diagnosis, lab results, radiology results. Special discussion: I discussed with the patient/guardian in detail that at this point there is no indication for admission to the hospital. It is understood, however, that if the symptoms persist or worsen the patient needs to return immediately for re-evaluation. ED course: Pt had witnessed pseudo seizure or seizure like activity in the ED. Pt was not post ictal.. 09/24 21:42 Order name: UDS; Complete Time: 22:37 09/24 21:42 Order name: Basic Metabolic Panel; Complete Time: 00:14 09/25 00:15 Interpretation: K 3.3; BUN 6. 09/24 21:42 Order name: CBC with Diff; Complete Time: 00:14 09/24 21:42 Order name: Ckmb; Complete Time: 00:14 09/24 21:42 Order name: CPK; Complete Time: 00:14 09/24 21:42 Order name: Hepatic Function; Complete Time: 00:14 09/24 21:42 Order name: Lipase; Complete Time: 00:14 09/24 21:42 Order name: Magnesium; Complete Time: 00:14 09/24 21:42 Order name: Protime (+inr); Complete Time: 00:14 09/24 21:42 Order name: Ptt, Activated; Complete Time: 00:14 09/24 21:42 Order name: Troponin (emerg Dept Use Only); Complete Time: 00:14 09/24 22:22 Order name: Urine Dipstick--Ancillary (enter results) [facility] 09/24 22:22 Order name: Urine --Ancillary (enter results) 09/24 22:52 Order name: Manual Differential; Complete Time: 00:14 EDMS 09/24 21:42 Order name: CT Head Brain wo Cont tw4 09/24 21:42 Order name: EKG; Complete Time: 21:43 tw4 09/24 21:42 Order name: Cardiac monitoring; Complete Time: 22:38 tw4 09/24 21:42 Order name: EKG - Nurse/Tech; Complete Time: 23:07 tw4 09/24 21:42 Order name: IV Saline Lock; Complete Time: 22:39 tw4 09/24 21:42 Order name: Labs collected and sent; Complete Time: 22:39 tw4 09/24 21:42 Order name: NPO; Complete Time: 22:39 tw4 09/24 21:42 Order name: O2 Per Protocol; Complete Time: 22:39 tw4 09/24 21:42 Order name: O2 Sat Monitoring; Complete Time: 22:39 tw4 09/24 21:42 Order name: Urine Dipstick-Ancillary (obtain specimen); Complete Time: 22:39 tw4 09/24 21:50 Order name: CT Chest For PE Angio tw4 09/24 23:32 Order name: Flu mw2 09/25 00:18 Order name: Influenza Screen (A EDMS EC:57 Rate is 71 beats/min. Rhythm is regular. QRS [place] is Normal. IA interval is normal. QRS tw4 interval is normal. QT interval is normal. No Q waves. T waves are Normal. No ST changes noted. Clinical impression: Normal ECG. Interpreted by me. Reviewed by me. Administered Medications: 01:00 Drug: Potassium Effervescent Tablet 50 mEq Route: PO; jv1 01:49 Follow up: Response: No adverse reaction jv1 01:00 Drug: Keppra 750 mg Route: PO; jv1 01:49 Follow up: Response: No adverse reaction jv1 Disposition: 09/25/19 00:23 Discharged to Home. Impression: Epilepsy and recurrent seizures, Syncope and collapse, Hypokalemia. - Condition is Stable. - Discharge Instructions: Potassium Content of Foods, Near-Syncope, Seizure, Adult, Hypokalemia. - Prescriptions for Keppra 750 mg Oral Tablet - take 1 tablet by ORAL route every 12 hours; 20 tablet. - Family Work Release, Medication Reconciliation Form, Thank You Letter, Antibiotic Education, Prescription Opioid Use form. - Follow up: Private Physician; When: Upon discharge from the Emergency Department; Reason: Recheck today's complaints, Continuance of care. - Problem is new. - Symptoms have improved. Signatures: Dispatcher [employer] Hardeep Mercedes MD MD tw4 Eri Meza, RN RN jv1 Miracle Ybarra RN RN ca1 Corrections: (The following items were deleted from the chart) 01:52 00:23 09/25/2019 00:23 Discharged to Home. Impression: Epilepsy and recurrent seizures; jv1 Syncope and collapse; Hypokalemia. Condition is Stable. Forms are Medication Reconciliation Form, Thank You Letter, Antibiotic Education, Prescription Opioid Use. Follow up: Private Physician; When: Upon discharge from the Emergency Department; Reason: Recheck today's complaints, Continuance of care. Problem is new. Symptoms have improved. tw4
[2019-09-25] MEDS ORDERED: POTASSIUM CL SA 10 MEQ TAB PO ONE (00:45)
[2019-09-25] MEDS ORDERED: levETIRAcetam 500 MG TAB ONE (00:45)
[2019-09-25] MEDS ORDERED: POTASSIUM 25 MEQ EFFERV TAB ONE (00:52)
[2019-09-25 02:23] VITALS: TEMP 99; O2SAT 99
[2019-09-25 02:25] VITALS: BP 125/78
[2019-09-25 08:16] LABS: Urine Blood TRACE (NEG); Urine Glucose NEGATIVE (NEG); Urine Protein NEGATIVE (NEG)
--- NOTE | 2019-09-25 09:49 | RAD REPORT ---
EXAM DESCRIPTION: CT - Head Brain Wo Cont - 09/25/2019 3:05 am CLINICAL HISTORY: SEIZURE COMPARISON: None available TECHNIQUE: Axial CT of the head obtained from the skull apex to the skull base without contrast. FINDINGS: No acute intracranial hemorrhage identified. No mass, mass effect, shift of the midline, a bnormal extra-axial fluid collection or CT evidence of acute ischemic change identified. The ventricu lar system is unremarkable. No acute abnormalities of the supratentorial white matter, basal gangli a, cerebellum, or brainstem. The visualized paranasal sinuses and the mastoids are clear. No skull fracture identified. Visualized orbits and globes are unremarkable. IMPRESSION: 1. No acute intracranial abnormality identified. This exam was performed according to our departmental dose-optimization program, which includes autom ated exposure control, adjustment of the mA and/or kV according to patient size and/or use of iterati ve reconstruction technique. Electronically signed by: Bethel Henry 09/24/2019 10:20 PM BUTCHER HELPER Due to temporary technical issues with the PACS/Fluency reporting system, reports are being signed by the in house radiologist as a courtesy to ensure prompt reporting. The interpreting radiologist is f ully responsible for the content of the report.
--- NOTE | 2019-09-25 09:50 | RAD REPORT ---
EXAM DESCRIPTION: CT - Chest For Pe Angio - 09/25/2019 3:05 am CLINICAL HISTORY: Syncope COMPARISON: None Available. TECHNIQUE: CTA of the chest obtained following the uncomplicated intravenous administration of iodin ated contrast. 3-D/MIP reformatted images of the chest available for evaluation. FINDINGS: Chest: Pulmonary arteries: Contrast bolus is adequate.No filling defects identified in the pulmonary arterie s to suggest pulmonary embolus. Significant respiratory motion artifact. Suboptimal evaluation of the segmental and subsegmental pulmonary arterial branches due to motion artifact. Thyroid: No abnormalities of the visualized thyroid. Great Vessels: Great vessels have normal anatomic configuration. Thoracic Aorta: No abnormalities of the thoracic aorta identified. Heart: No cardiomegaly, significant pericardial effusion, or coronary artery atherosclerosis Lymph Nodes: No enlarged mediastinal lymph nodes identified. Esophagus: No abnormalities of the esophagus identified. Other: No additional findings. Lungs: No airspace opacities identified. Pleura: No pleural effusion or pneumothorax. Trachea/Airways: No abnormalities of the visualized trachea or airways. Bones: No destructive osseous lesions. Upper Abdomen: Limited images of the upper abdomen demonstrate no definite abnormalities of visualize d portions of the liver, pancreas, and spleen. IMPRESSION: 1. No pulmonary embolus identified. Suboptimal evaluation of the segmental and subsegmen kelly pulmonary arterial branches due to respiratory motion artifact. This exam was performed according to our departmental dose-optimization program, which includes autom ated exposure control, adjustment of the mA and/or kV according to patient size and/or use of iterati ve reconstruction technique. Electronically signed by: Bethel Henry 09/24/2019 10:25 PM TOBACCO SWEEPER Due to temporary technical issues with the PACS/Fluency reporting system, reports are being signed by the in house radiologist as a courtesy to ensure prompt reporting. The interpreting radiologist is f ully responsible for the content of the report.
--- NOTE | 2019-09-25 10:24 | EKG ---
Test Date: 2019-09-24 Test Time: 22:59:23 Insurance Clerk: ZIGGY MEASUREMENT RESULTS: Intervals: Rate: 71 RI: 154 QRSD: 90 QT: 410 QTc: 445 [place]: P: 52 RI: 154 QRS: 29 T: 18 INTERPRETIVE STATEMENTS: Normal sinus rhythm Normal ECG Compared to ECG 02/14/2019 00:54:53 Myocardial infarct finding no longer present Electronically Signed On 09-25-19 10:23:48 PATTERNMA[employer] by Daren Solorio
== END 2019-09-25 01:52 | disposition home or self-care (01) ==
LOC: ER 21:19
DX: G40.802 Other epilepsy, not intractable, without status epilepticus (principal); E87.6 Hypokalemia; R55 Syncope and collapse; F17.210 Nicotine dependence, cigarettes, uncomplicated; Z88.1 Allergy status to other antibiotic agents
CPT/HCPCS: 93005; 85025; 80048; 36415; 83735; 82550; 81025; 85610; 80076; 80307 ×8; 85730; 81003; 84484; 82553; 83690; 87804 ×2; 70450; 71275; 99284; Q9967